=== PATIENT | male | born 1965 | race Hispanic/Latino ===

== ENCOUNTER 2022-05-15 | Emergency (ER) | payer SELFPAY ==
[~2022-05-15] VITALS: Ht 157.5 cm; Wt 86.2 kg
[2022-05-15] MEDS ORDERED: KETOROLAC TROMETHAMINE 30 MG/ML VIAL IV STA (00:14)
[2022-05-15 00:26] LABS: BASOPHILS % 0.4 % (0.0-1.0); EOSINOPHILS # (AUTO) 0.3 (0.0-0.4); EOSINOPHILS % 2.7 % (0.0-6.0); HEMATOCRIT 46.6 % (38.2-49.6); HEMOGLOBIN 15.7 g/dL (14.0-18.0); LYMPHOCYTES # (AUTO) 4.4 (1.0-3.2); LYMPHOCYTES % 43.7 % (18.0-39.1); MEAN CORPUSCULAR HEMOGLOBIN 31.3 pg (28-32); MEAN CORPUSCULAR HGB CONC 33.7 g/dL (31-35); MONOCYTES # (AUTO) 0.7 (0.2-0.8); MONOCYTES % 7.2 % (4.4-11.3); NEUTROPHILS # (AUTO) 4.6 (2.1-6.9); NEUTROPHILS % 45.7 % (38.7-80.0); PLATELET COUNT 280 x10e3/uL (140-360); RED BLOOD COUNT 5.01 x10e6/uL (4.3-5.7); RED CELL DISTRIBUTION WIDTH 13.7 % (11.7-14.4)
[2022-05-15 00:43] LABS: ALANINE AMINOTRANSFERASE 17 IU/L (0-55); ALBUMIN 3.6 g/dL (3.5-5.0); ALBUMIN/GLOBULIN RATIO 1.2 (0.8-2.0); ALKALINE PHOSPHATASE 68 IU/L (40-150); BLOOD UREA NITROGEN 9 mg/dL (7-26); BUN/CREATININE RATIO 10 (6-25); CALCIUM 9.1 mg/dL (8.4-10.2); CARBON DIOXIDE 27 mmol/L (22-29); CHLORIDE 106 mmol/L (98-107); CREATINE KINASE 100 IU/L (30-200); CREATININE, SERUM 0.94 mg/dL (0.72-1.25); GLUCOSE 103 mg/dL (74-118); SODIUM 141 mmol/L (136-145)
[2022-05-15 01:06] LABS: CREATINE KINASE MB < 1.00 ng/mL (0-4.3)
[2022-05-15 01:41] LABS: AMPHETAMINES SCREEN,URINE NEGATIVE (NEGATIVE); BENZODIAZEPINES SCREEN,URINE NEGATIVE (NEGATIVE); PHENCYCLIDINE SCREEN,URINE NEGATIVE (NEGATIVE)
[2022-05-15 02:27] VITALS: BP 113/77
== END 2022-05-15 02:31 | disposition home or self-care (01) ==
LOC: ER 00:08
DX: R06.02 Shortness of breath (principal); R07.9 Chest pain, unspecified
CPT/HCPCS: 36415; 71045; 80053; 80307; 80320; 82550; 82553; 83690; 83880; 84484; 85025; 85379; 93005; 99283; J1885

== ENCOUNTER 2024-07-14 18:35 | Emergency (ER) | payer SELFPAY ==
[~2024-07-14] VITALS: Ht 160 cm; Wt 86.2 kg
[2024-07-14] MEDS ORDERED: Morphine 2mg Syringe 2 MG/ML SYR ONE (19:36)
[2024-07-14] MEDS: ACETAMINOPHEN 325 MG TAB PO STA (20:57)
[2024-07-14] MEDS: Morphine 2mg Syringe 2 MG/ML SYR IM ONE (21:14)
[2024-07-14] MEDS ORDERED: ONDANSETRON HCL 4 MG ORAL DISINTEGRATING TAB ONE (21:36)
[2024-07-14 21:45] VITALS: PULSE 67; RESP 17; TEMP 98.6; O2SAT 97
[2024-07-14] MEDS ORDERED: ONDANSETRON ODT4 MG PO (22:02)
[2024-07-14] MEDS ORDERED: ULTRAM 50MG50 MG PO (22:02)
[2024-07-14] MEDS: ONDANSETRON HCL 4 MG ORAL DISINTEGRATING TAB PO ONE (22:05)
== END 2024-07-14 21:45 | disposition home or self-care (01) ==
LOC: ER 18:49
DX: K42.9 Umbilical hernia without obstruction or gangrene (principal); E66.9 Obesity, unspecified
CPT/HCPCS: 74176; 99283; J2270; Q0162